=== PATIENT | female | born 1980 | race Two or more races ===

== ENCOUNTER 2017-06-16 11:52 | Inpatient (IN) | payer MEDICAID, OTHER ==
[~2017-06-16] VITALS: Ht 160 cm; Wt 85.3 kg
[2017-06-16 13:41] LABS: Basophils # (auto) 0 uL; Basophils % (auto) 0.1 % (0.0-2.0); Eosinophils # (auto) 0 uL; Hematocrit 47.6 % (36.0-46.0); Hemoglobin 15.2 g/dL (12.2-16.2); Lymphocytes # (auto) 1.8 uL; Lymphocytes % (auto) 8.6 % (10.0-50.0); Mean Corpuscular Hemoglobin 25.9 pg (28.0-32.0); Mean Corpuscular Hgb Conc. 31.9 g/dL (32.0-36.0); Mean Corpuscular Volume 81.4 fL (80.0-100.0); Monocytes # (auto) 1.3 uL; Neutrophils # (auto) 18.1 uL; Neutrophils % (auto) 85.3 % (37.0-80.0); Nucleated Red Blood Cells % 0.1 %; Platelet Count (auto) 267 10^3/uL (140-450); Red Blood Cells 5.85 10^6/uL (4.0-5.20); Red Cell Distribution Width 15.2 % (11.8-14.3); White Blood Cell 21.2 10^3/uL (4.4-10.8)
[2017-06-16 14:02] LABS: Albumin 4.1 g/dL (3.4-5.0); BUN/Creatinine Ratio 12.2; Calcium 9.7 mg/dL (8.5-10.1); Potassium 3.7 mmol/L (3.5-5.1)
[2017-06-16 14:04] LABS: Bilirubin, Total 0.7 mg/dL (0.2-1.0); Total Protein 8.6 g/dL (6.4-8.2)
[2017-06-16] MEDS ORDERED: SODIUM CHLORIDE 0.9% 1,000 ML IVB ONE (14:09)
[2017-06-16] MEDS ORDERED: ONDANSETRON HCL 4 MG/2 ML VIAL IV ONE ×2 (14:15→20:15)
[2017-06-16] MEDS ORDERED: MORPHINE SULFATE 4 MG/ML SYR/VIAL IV ONE ×2 (14:15→16:15)
[2017-06-16] MEDS ORDERED: cefTRIAXone 1GM/10ml IVPUSH 10 ML IV ONE (15:45)
[2017-06-16] MEDS: SODIUM CHLORIDE 0.9% 1,000 ML IV SCH ×2 (16:32→22:51)
[2017-06-16] MEDS ORDERED: MORPHINE SULFATE 4 MG/ML SYR/VIAL IV PRN ×2 (16:45→20:15)
[2017-06-16] MEDS ORDERED: PIPERACILLIN-TAZOB 3.375GM 50 ML IV ONE (16:45)
[2017-06-16] MEDS ORDERED: NITROGLYCERIN 0.4 MG SL TAB SL PRN (16:45)
[2017-06-16] MEDS: FAMOTIDINE (10MG/ML) 2ML VL IV SCH (16:54)
[2017-06-16 17:32] LABS: INR 0.98 (0.9-1.15); Partial Thromboplastin Time 26.7 sec (22.64-33.71); Prothrombin Time 10.7 sec (9.37-12.3)
[2017-06-16] MEDS: metroNIDAZOLE 500MG/100ML 100 ML IV SCH ×2 (18:00→23:39)
[2017-06-16 19:31] LABS: Urine Bacteria FEW /hpf (None Seen); Urine Blood Negative /uL (Negative); Urine Mucus FEW (None Seen); Urine Specific Gravity 1.014 (1.001-1.035); Urine WBC 2 /hpf (0 - 5)
[2017-06-16] MEDS ORDERED: SUCCINYLCHOLINE CHLORIDE 20 MG/ML 10ML VIAL IV ONE (19:41)
[2017-06-16] MEDS ORDERED: LIDOCAINE 1% HCL (LOCAL ANESTH.) INJ 20ML MDV ONE (19:41)
[2017-06-16] MEDS ORDERED: ROCURONIUM 10MG/ML 10ML VIAL IV ONE (19:43)
[2017-06-16] MEDS ORDERED: MIDAZOLAM HCL 1MG/1ML-2 ML VIAL ONE (19:43)
[2017-06-16] MEDS ORDERED: fentaNYL CITRATE 100 MCG/2 ML VL ONE (19:43)
[2017-06-16] MEDS ORDERED: PROPOFOL 10 MG/ML 20 ML IV ONE (19:43)
[2017-06-16] MEDS ORDERED: hydrALAZINE HCL 20 MG/ML VL IV PRN (20:15)
[2017-06-16] MEDS ORDERED: ePHEDrine SULFATE 50 MG/ML AMP IV PRN (20:15)
[2017-06-16] MEDS ORDERED: METOCLOPRAMIDE HCL 5MG/ml INJ 2ml VIAL IV ONE (20:15)
[2017-06-16] MEDS ORDERED: KETOROLAC TROMETH 30 MG/ML 1ML VIAL ONE (20:32)
[2017-06-16] MEDS ORDERED: MEPERIDINE HCL (50 MG/ML) 1 ML VIAL ONE (20:33)
[2017-06-16] MEDS ORDERED: NEOSTIGMINE 1 MG/ML INJ (10mg/10ML VIAL) ONE (20:39)
[2017-06-16] MEDS ORDERED: GLYCOPYRROLATE 0.2 MG/ML 1ML VIAL ONE (20:39)
[2017-06-16 21:45] VITALS: BP 147/95
[2017-06-16] MEDS: MORPHINE SULFATE 4 MG/ML SYR/VIAL IV PRN (21:57)
[2017-06-16 22:00] VITALS: BP 147/95
[2017-06-17] MEDS: PIPERACILLIN-TAZOB 3.375GM 50 ML IV SCH ×4 (01:02→18:25)
[2017-06-17] MEDS: MORPHINE SULFATE 4 MG/ML SYR/VIAL IV PRN ×5 (01:15→20:25)
[2017-06-17] MEDS: FAMOTIDINE (10MG/ML) 2ML VL IV SCH ×2 (04:58→18:25)
[2017-06-17] MEDS: LORazepam 2MG/ML-1ML VIAL IV PRN ×2 (04:58→22:22)
[2017-06-17 05:00] VITALS: BP 119/72
[2017-06-17] MEDS: metroNIDAZOLE 500MG/100ML 100 ML IV SCH ×2 (05:01→11:20)
[2017-06-17] MEDS: SODIUM CHLORIDE 0.9% 1,000 ML IV SCH ×2 (05:01→14:34)
[2017-06-17 07:37] LABS: Basophils # (auto) 0 uL; Eosinophils # (auto) 0 uL; Eosinophils % (auto) 0.1 % (0.0-7.0); Mean Corpuscular Volume 81.5 fL (80.0-100.0); Monocytes # (auto) 1.5 uL; Platelet Count (auto) 198 10^3/uL (140-450)
[2017-06-17 07:39] LABS: Basophils % (auto) 0.1 % (0.0-2.0); Hematocrit 38.1 % (36.0-46.0); Hemoglobin 12.4 g/dL (12.2-16.2); Lymphocytes # (auto) 2.6 uL; Lymphocytes % (auto) 12.6 % (10.0-50.0); Mean Corpuscular Hemoglobin 26.6 pg (28.0-32.0); Mean Corpuscular Hgb Conc. 32.6 g/dL (32.0-36.0); Monocytes % (auto) 6.9 % (0.0-12.0); Neutrophils # (auto) 16.8 uL; Neutrophils % (auto) 80.3 % (37.0-80.0); Red Blood Cells 4.67 10^6/uL (4.0-5.20); Red Cell Distribution Width 15.6 % (11.8-14.3)
[2017-06-17 07:59] LABS: Albumin 2.8 g/dL (3.4-5.0); Calcium 7.7 mg/dL (8.5-10.1); Potassium 3.5 mmol/L (3.5-5.1); Total Protein 6.6 g/dL (6.4-8.2)
[2017-06-17 09:00] VITALS: BP 125/83
[2017-06-17 13:00] VITALS: BP 131/78
[2017-06-17 17:00] VITALS: BP 122/82
[2017-06-17 22:00] VITALS: BP 145/101
[2017-06-18] VITALS (7 sets, daily range): BP systolic 124–145; BP diastolic 87–99
[2017-06-18] MEDS: PIPERACILLIN-TAZOB 3.375GM 50 ML IV SCH ×5 (00:37→23:33)
[2017-06-18] MEDS: MORPHINE SULFATE 4 MG/ML SYR/VIAL IV PRN ×4 (03:30→17:53)
[2017-06-18] MEDS: SODIUM CHLORIDE 0.9% 1,000 ML IV SCH ×4 (04:14→20:30)
[2017-06-18 05:32] LABS: Basophils # (auto) 0 uL; Basophils % (auto) 0.1 % (0.0-2.0); Eosinophils # (auto) 0 uL; Lymphocytes # (auto) 2.3 uL; Monocytes # (auto) 1.3 uL
[2017-06-18 05:34] LABS: Eosinophils % (auto) 0.1 % (0.0-7.0); Hematocrit 37.3 % (36.0-46.0); Hemoglobin 12.1 g/dL (12.2-16.2); Lymphocytes % (auto) 13.5 % (10.0-50.0); Mean Corpuscular Hemoglobin 26.5 pg (28.0-32.0); Mean Corpuscular Hgb Conc. 32.4 g/dL (32.0-36.0); Monocytes % (auto) 7.8 % (0.0-12.0); Neutrophils # (auto) 13.6 uL; Neutrophils % (auto) 78.5 % (37.0-80.0); Platelet Count (auto) 185 10^3/uL (140-450); Red Blood Cells 4.55 10^6/uL (4.0-5.20); Red Cell Distribution Width 15.4 % (11.8-14.3); White Blood Cell 17.3 10^3/uL (4.4-10.8)
[2017-06-18 05:48] LABS: Albumin 2.7 g/dL (3.4-5.0); BUN/Creatinine Ratio 20.8; Calcium 8.4 mg/dL (8.5-10.1); Potassium 3.2 mmol/L (3.5-5.1)
[2017-06-18 05:51] LABS: Bilirubin, Total 0.8 mg/dL (0.2-1.0); Total Protein 6.6 g/dL (6.4-8.2)
[2017-06-18] MEDS: FAMOTIDINE (10MG/ML) 2ML VL IV SCH ×2 (06:20→17:52)
[2017-06-18] MEDS ORDERED: POTASSIUM CHL 20 Meq TABLET PO ONE (11:45)
[2017-06-18] MEDS: LORazepam 2MG/ML-1ML VIAL IV PRN ×2 (11:49→20:16)
[2017-06-19] VITALS (7 sets, daily range): BP systolic 121–138; BP diastolic 78–91
[2017-06-19] MEDS: MORPHINE SULFATE 4 MG/ML SYR/VIAL IV PRN ×2 (01:35→06:20)
[2017-06-19] MEDS: SODIUM CHLORIDE 0.9% 1,000 ML IV SCH ×2 (05:11→11:57)
[2017-06-19] MEDS: PIPERACILLIN-TAZOB 3.375GM 50 ML IV SCH ×3 (05:29→17:55)
[2017-06-19] MEDS: FAMOTIDINE (10MG/ML) 2ML VL IV SCH ×2 (05:29→16:47)
[2017-06-19] MEDS ORDERED: MORPHINE SULFATE 4 MG/ML SYR/VIAL ONE (06:01)
[2017-06-19 07:11] LABS: Basophils % (auto) 0.3 % (0.0-2.0); Eosinophils # (auto) 0.1 uL; Neutrophils # (auto) 10.5 uL; Nucleated Red Blood Cells % 0.1 %
[2017-06-19 07:14] LABS: Basophils # (auto) 0.1 uL; Eosinophils % (auto) 0.6 % (0.0-7.0); Hematocrit 34.4 % (36.0-46.0); Lymphocytes # (auto) 2.7 uL; Lymphocytes % (auto) 18.4 % (10.0-50.0); Mean Corpuscular Hemoglobin 26.2 pg (28.0-32.0); Mean Corpuscular Hgb Conc. 31.9 g/dL (32.0-36.0); Mean Corpuscular Volume 82.1 fL (80.0-100.0); Monocytes # (auto) 1.4 uL; Monocytes % (auto) 9.7 % (0.0-12.0); Platelet Count (auto) 208 10^3/uL (140-450); Red Blood Cells 4.18 10^6/uL (4.0-5.20); Red Cell Distribution Width 15.6 % (11.8-14.3); White Blood Cell 14.7 10^3/uL (4.4-10.8)
[2017-06-19 08:14] LABS: BUN/Creatinine Ratio 21.4; Calcium 8.1 mg/dL (8.5-10.1); Potassium 3.5 mmol/L (3.5-5.1)
[2017-06-19] MEDS: LORazepam 2MG/ML-1ML VIAL IV PRN (10:03)
[2017-06-19] MEDS: KETOROLAC TROMETH 30 MG/ML 1ML VIAL IV PRN ×2 (15:27→21:57)
[2017-06-20] MEDS: PIPERACILLIN-TAZOB 3.375GM 50 ML IV SCH ×4 (00:36→18:10)
[2017-06-20] MEDS: LORazepam 2MG/ML-1ML VIAL IV PRN ×2 (00:36→10:06)
[2017-06-20] MEDS: SODIUM CHLORIDE 0.9% 1,000 ML IV SCH ×2 (01:05→15:18)
[2017-06-20] MEDS: FAMOTIDINE (10MG/ML) 2ML VL IV SCH ×2 (05:22→17:10)
[2017-06-20 05:23] VITALS: BP 123/80
[2017-06-20 06:05] LABS: Basophils # (auto) 0 uL; Eosinophils # (auto) 0.2 uL; Hemoglobin 10.9 g/dL (12.2-16.2); Lymphocytes # (auto) 2.4 uL; Mean Corpuscular Hemoglobin 26.6 pg (28.0-32.0); Mean Corpuscular Hgb Conc. 32.5 g/dL (32.0-36.0); Neutrophils # (auto) 6.5 uL
[2017-06-20 06:07] LABS: Basophils % (auto) 0.5 % (0.0-2.0); Eosinophils % (auto) 1.8 % (0.0-7.0); Hematocrit 33.4 % (36.0-46.0); Lymphocytes % (auto) 23.2 % (10.0-50.0); Mean Corpuscular Volume 81.7 fL (80.0-100.0); Monocytes # (auto) 1.3 uL; Monocytes % (auto) 12.1 % (0.0-12.0); Neutrophils % (auto) 62.4 % (37.0-80.0); Platelet Count (auto) 236 10^3/uL (140-450); Red Blood Cells 4.09 10^6/uL (4.0-5.20); Red Cell Distribution Width 15.4 % (11.8-14.3); White Blood Cell 10.4 10^3/uL (4.4-10.8)
[2017-06-20] MEDS: KETOROLAC TROMETH 30 MG/ML 1ML VIAL IV PRN ×3 (06:57→20:28)
[2017-06-20 08:00] VITALS: BP 122/81
[2017-06-20 12:00] VITALS: BP 130/85
[2017-06-20 16:54] VITALS: BP 128/91
[2017-06-20] MEDS: MORPHINE SULFATE 4 MG/ML SYR/VIAL IV PRN (17:15)
[2017-06-20 21:44] VITALS: BP 138/88
[2017-06-21] VITALS (7 sets, daily range): BP systolic 108–150; BP diastolic 63–101
[2017-06-21] MEDS: PIPERACILLIN-TAZOB 3.375GM 50 ML IV SCH ×2 (00:28→05:55)
[2017-06-21] MEDS: KETOROLAC TROMETH 30 MG/ML 1ML VIAL IV PRN (02:15)
[2017-06-21] MEDS: SODIUM CHLORIDE 0.9% 1,000 ML IV SCH (04:12)
[2017-06-21] MEDS: FAMOTIDINE (10MG/ML) 2ML VL IV SCH (04:21)
[2017-06-21 06:14] LABS: Hemoglobin 10.3 g/dL (12.2-16.2); Lymphocytes # (auto) 2.2 uL
[2017-06-21 06:16] LABS: Basophils # (auto) 0 uL; Basophils % (auto) 0.3 % (0.0-2.0); Eosinophils # (auto) 0.2 uL; Eosinophils % (auto) 2.6 % (0.0-7.0); Hematocrit 31.9 % (36.0-46.0); Lymphocytes % (auto) 23.8 % (10.0-50.0); Mean Corpuscular Hemoglobin 26.4 pg (28.0-32.0); Mean Corpuscular Hgb Conc. 32.2 g/dL (32.0-36.0); Monocytes % (auto) 10.4 % (0.0-12.0); Neutrophils # (auto) 5.8 uL; Neutrophils % (auto) 62.9 % (37.0-80.0); Nucleated Red Blood Cells % 0.2 %; Platelet Count (auto) 249 10^3/uL (140-450); Red Blood Cells 3.89 10^6/uL (4.0-5.20); Red Cell Distribution Width 15.4 % (11.8-14.3); White Blood Cell 9.2 10^3/uL (4.4-10.8)
[2017-06-21 06:29] LABS: Potassium 3.7 mmol/L (3.5-5.1)
[2017-06-21] MEDS: LEVOFLOXACIN 500 MG TAB PO SCH (11:24)
[2017-06-21] MEDS: ACETAMINOPHEN 500 MG TAB PO PRN ×2 (11:25→21:16)
[2017-06-21] MEDS: MORPHINE SULFATE 4 MG/ML SYR/VIAL IV PRN ×2 (12:49→17:26)
[2017-06-21] MEDS: LORazepam 2MG/ML-1ML VIAL IV PRN (14:25)
[2017-06-21] MEDS: metroNIDAZOLE 500 MG TAB PO SCH ×2 (14:41→22:05)
[2017-06-21] MEDS: FAMOTIDINE 20 MG TAB PO SCH (22:06)
[2017-06-22] MEDS: MORPHINE SULFATE 4 MG/ML SYR/VIAL IV PRN ×3 (00:20→15:44)
[2017-06-22 05:00] VITALS: BP 136/81
[2017-06-22] MEDS: ACETAMINOPHEN 500 MG TAB PO PRN ×2 (05:35→13:59)
[2017-06-22] MEDS: metroNIDAZOLE 500 MG TAB PO SCH (05:35)
[2017-06-22 07:04] LABS: Basophils % (auto) 0.4 % (0.0-2.0); Eosinophils # (auto) 0.2 uL; Monocytes # (auto) 1.4 uL; Neutrophils # (auto) 8.2 uL
[2017-06-22 07:07] LABS: Basophils # (auto) 0 uL; Eosinophils % (auto) 1.8 % (0.0-7.0); Hemoglobin 11.6 g/dL (12.2-16.2); Lymphocytes # (auto) 2.7 uL; Lymphocytes % (auto) 21.5 % (10.0-50.0); Mean Corpuscular Hemoglobin 26.1 pg (28.0-32.0); Mean Corpuscular Hgb Conc. 32.2 g/dL (32.0-36.0); Monocytes % (auto) 11.2 % (0.0-12.0); Neutrophils % (auto) 65.1 % (37.0-80.0); Nucleated Red Blood Cells % 0.1 %; Platelet Count (auto) 306 10^3/uL (140-450); Red Blood Cells 4.45 10^6/uL (4.0-5.20); Red Cell Distribution Width 15.1 % (11.8-14.3); White Blood Cell 12.6 10^3/uL (4.4-10.8)
[2017-06-22 08:00] VITALS: BP 147/98
[2017-06-22] MEDS: FAMOTIDINE 20 MG TAB PO SCH ×2 (09:07→22:38)
[2017-06-22] MEDS: LEVOFLOXACIN 500 MG TAB PO SCH (09:07)
[2017-06-22] MEDS: PROMETHAZINE HCL 25 MG/ML 1ML IV PRN ×2 (09:07→15:43)
[2017-06-22] MEDS ORDERED: IOHEXOL 300 MG/ML 100ML BOTTLE IJ ONE (11:27)
[2017-06-22 12:00] VITALS: BP 136/85
[2017-06-22] MEDS: metroNIDAZOLE 500MG/100ML 100 ML IV SCH ×2 (13:33→22:37)
[2017-06-22 17:00] VITALS: BP 122/80
[2017-06-22 20:00] VITALS: BP 147/94
[2017-06-22 22:00] VITALS: BP 147/94
[2017-06-22] MEDS: DOCUSATE SOD 100 MG CAP PO SCH (22:00)
[2017-06-22] MEDS: LORazepam 2MG/ML-1ML VIAL IV PRN (23:10)
[2017-06-23] MEDS: MORPHINE SULFATE 4 MG/ML SYR/VIAL IV PRN ×3 (01:27→20:14)
[2017-06-23] MEDS: metroNIDAZOLE 500MG/100ML 100 ML IV SCH ×3 (06:14→22:06)
[2017-06-23 07:07] LABS: Basophils # (auto) 0 uL; Hemoglobin 11.9 g/dL (12.2-16.2); Mean Corpuscular Hgb Conc. 31.8 g/dL (32.0-36.0); Monocytes # (auto) 1.3 uL; Monocytes % (auto) 9.9 % (0.0-12.0); Platelet Count (auto) 346 10^3/uL (140-450)
[2017-06-23 07:14] LABS: Basophils % (auto) 0.2 % (0.0-2.0); Eosinophils # (auto) 0.1 uL; Eosinophils % (auto) 1.1 % (0.0-7.0); Hematocrit 37.5 % (36.0-46.0); Lymphocytes # (auto) 3.2 uL; Lymphocytes % (auto) 25.2 % (10.0-50.0); Mean Corpuscular Hemoglobin 25.9 pg (28.0-32.0); Mean Corpuscular Volume 81.4 fL (80.0-100.0); Neutrophils # (auto) 8.2 uL; Neutrophils % (auto) 63.6 % (37.0-80.0); Red Blood Cells 4.61 10^6/uL (4.0-5.20); Red Cell Distribution Width 15.6 % (11.8-14.3); White Blood Cell 12.8 10^3/uL (4.4-10.8)
[2017-06-23] MEDS: ACETAMINOPHEN 500 MG TAB PO PRN ×2 (07:18→22:05)
[2017-06-23 07:24] LABS: Albumin 2.8 g/dL (3.4-5.0); Calcium 8.6 mg/dL (8.5-10.1)
[2017-06-23 07:35] LABS: Bilirubin, Total 0.3 mg/dL (0.2-1.0); Total Protein 7.1 g/dL (6.4-8.2)
[2017-06-23 08:09] VITALS: BP 129/83
[2017-06-23] MEDS: LEVOFLOXACIN 500MG 100 ML IV SCH (09:47)
[2017-06-23] MEDS: FAMOTIDINE 20 MG TAB PO SCH ×2 (09:48→22:05)
[2017-06-23] MEDS: DOCUSATE SOD 100 MG CAP PO SCH ×2 (09:48→22:06)
[2017-06-23] MEDS: PROMETHAZINE HCL 25 MG/ML 1ML IV PRN (11:35)
[2017-06-23 12:15] VITALS: BP 134/94
[2017-06-23] MEDS: LORazepam 2MG/ML-1ML VIAL IV PRN (16:33)
[2017-06-23 16:57] VITALS: BP 142/93
[2017-06-23 20:00] VITALS: BP 141/94
[2017-06-23 22:00] VITALS: BP 141/94
[2017-06-24 05:00] VITALS: BP 120/83
[2017-06-24] MEDS: metroNIDAZOLE 500MG/100ML 100 ML IV SCH ×3 (06:55→21:21)
[2017-06-24 08:00] VITALS: BP 121/82
[2017-06-24] MEDS: ACETAMINOPHEN 500 MG TAB PO PRN (09:20)
[2017-06-24] MEDS: FAMOTIDINE 20 MG TAB PO SCH ×2 (09:21→21:22)
[2017-06-24] MEDS: DOCUSATE SOD 100 MG CAP PO SCH ×2 (09:21→21:22)
[2017-06-24] MEDS: LEVOFLOXACIN 500MG 100 ML IV SCH (09:21)
[2017-06-24 12:00] VITALS: BP 138/89
[2017-06-24] MEDS ORDERED: LORazepam 2MG/ML-1ML VIAL IV PRN (12:30)
[2017-06-24] MEDS ORDERED: MORPHINE SULFATE 4 MG/ML SYR/VIAL IV PRN ×3 (12:30)
[2017-06-24] MEDS ORDERED: HYDROcodone-ACET 5/325MG TAB PO PRN (12:30)
[2017-06-24] MEDS: PROMETHAZINE HCL 25 MG/ML 1ML IV PRN ×2 (12:36→17:24)
[2017-06-24] MEDS: MORPHINE SULFATE 4 MG/ML SYR/VIAL IV PRN ×2 (12:43→20:37)
[2017-06-24 16:40] VITALS: BP 143/97
[2017-06-24 20:00] VITALS: BP 137/88
[2017-06-24 22:00] VITALS: BP 137/88
[2017-06-25] MEDS: MORPHINE SULFATE 4 MG/ML SYR/VIAL IV PRN ×2 (00:33→10:09)
[2017-06-25 05:00] VITALS: BP 129/81
[2017-06-25 05:39] LABS: Mean Corpuscular Volume 81.4 fL (80.0-100.0); White Blood Cell 11.4 10^3/uL (4.4-10.8)
[2017-06-25 05:42] LABS: Hematocrit 39.3 % (36.0-46.0); Hemoglobin 12.9 g/dL (12.2-16.2); Mean Corpuscular Hemoglobin 26.7 pg (28.0-32.0); Mean Corpuscular Hgb Conc. 32.7 g/dL (32.0-36.0); Platelet Count (auto) 403 10^3/uL (140-450); Red Blood Cells 4.82 10^6/uL (4.0-5.20); Red Cell Distribution Width 15.3 % (11.8-14.3)
[2017-06-25 05:55] LABS: Basophils % (manual) 0 (0.0-2.0); Blast Cells 0; Metamyelocytes % 0; Myelocytes % 0; Promyelocytes % 0; Reactive Lymphocytes 0
[2017-06-25 05:57] LABS: Potassium 4.3 mmol/L (3.5-5.1)
[2017-06-25] MEDS: metroNIDAZOLE 500MG/100ML 100 ML IV SCH (06:02)
[2017-06-25 06:08] LABS: Albumin 3.2 g/dL (3.4-5.0); BUN/Creatinine Ratio 19.7; Calcium 9.2 mg/dL (8.5-10.1)
[2017-06-25 06:10] LABS: Bilirubin, Total 0.4 mg/dL (0.2-1.0); Total Protein 7.4 g/dL (6.4-8.2)
[2017-06-25 06:33] LABS: Band Neutrophils % (manual) 2; Eosinophils % (manual) 3 (0-7); Lymphocytes % (manual) 26 (10.0-50.0); Monocytes % (manual) 9 (0-12)
[2017-06-25 09:00] VITALS: BP 126/78
[2017-06-25] MEDS: DOCUSATE SOD 100 MG CAP PO SCH ×2 (10:08→21:28)
[2017-06-25] MEDS: FAMOTIDINE 20 MG TAB PO SCH ×2 (10:08→21:28)
[2017-06-25] MEDS: LEVOFLOXACIN 500MG 100 ML IV SCH (10:09)
[2017-06-25 13:00] VITALS: BP 126/91
[2017-06-25] MEDS: PROMETHAZINE HCL 25 MG/ML 1ML IV PRN (13:22)
[2017-06-25] MEDS: metroNIDAZOLE 500 MG TAB PO SCH ×2 (13:23→21:28)
[2017-06-25 16:49] VITALS: BP 115/75
[2017-06-25 20:00] VITALS: BP 131/91
[2017-06-25 22:00] VITALS: BP 131/91
[2017-06-26 05:00] VITALS: BP 129/82
[2017-06-26] MEDS: metroNIDAZOLE 500 MG TAB PO SCH ×3 (06:00→21:17)
[2017-06-26 06:21] LABS: Hemoglobin 13.1 g/dL (12.2-16.2); Lymphocytes # (auto) 3.1 uL; Red Cell Distribution Width 15.5 % (11.8-14.3)
[2017-06-26 06:23] LABS: Basophils # (auto) 0 uL; Basophils % (auto) 0.3 % (0.0-2.0); Eosinophils # (auto) 0.2 uL; Eosinophils % (auto) 1.3 % (0.0-7.0); Hematocrit 40.4 % (36.0-46.0); Lymphocytes % (auto) 26.3 % (10.0-50.0); Mean Corpuscular Hemoglobin 26.4 pg (28.0-32.0); Mean Corpuscular Hgb Conc. 32.4 g/dL (32.0-36.0); Mean Corpuscular Volume 81.3 fL (80.0-100.0); Monocytes % (auto) 8.6 % (0.0-12.0); Neutrophils # (auto) 7.5 uL; Neutrophils % (auto) 63.5 % (37.0-80.0); Nucleated Red Blood Cells % 0.1 %; Platelet Count (auto) 420 10^3/uL (140-450); Red Blood Cells 4.97 10^6/uL (4.0-5.20); White Blood Cell 11.8 10^3/uL (4.4-10.8)
[2017-06-26 08:56] VITALS: BP 142/103
[2017-06-26] MEDS: LEVOFLOXACIN 500MG 100 ML IV SCH (09:46)
[2017-06-26] MEDS: FAMOTIDINE 20 MG TAB PO SCH ×2 (09:46→21:18)
[2017-06-26] MEDS: DOCUSATE SOD 100 MG CAP PO SCH ×2 (09:46→21:17)
[2017-06-26] MEDS ORDERED: MORPHINE SULFATE 4 MG/ML SYR/VIAL IV PRN (12:15)
[2017-06-26 12:31] VITALS: BP 134/85
[2017-06-26 16:28] VITALS: BP 139/98
[2017-06-26 20:00] VITALS: BP 136/97
[2017-06-26 22:00] VITALS: BP 136/97
[2017-06-27 05:00] VITALS: BP 126/78
[2017-06-27] MEDS: metroNIDAZOLE 500 MG TAB PO SCH (05:35)
[2017-06-27 08:58] VITALS: BP 133/93
[2017-06-27] MEDS ORDERED: IOHEXOL 300 MG/ML 100ML BOTTLE IJ ONE (09:50)
[2017-06-27] MEDS: DOCUSATE SOD 100 MG CAP PO SCH (10:20)
[2017-06-27] MEDS: LEVOFLOXACIN 500MG 100 ML IV SCH (10:20)
[2017-06-27] MEDS: FAMOTIDINE 20 MG TAB PO SCH (10:20)
[2017-06-27 11:31] VITALS: BP 146/96
== END 2017-06-27 14:29 | disposition home or self-care (01) | DRG 710 ==
LOC: ER 11:52 → EDBD 11:52 → TELE 11:53 → TELE-WESTW 21:45 → WEST WING 06-17 18:50
PROVIDERS: ADMIT Internal Medicine; ATTEND Internal Medicine
PROC: 0DTJ4ZZ Resection of Appendix, Percutaneous Endoscopic Approach (ICD-10-PCS; principal; 2017-06-16 19:49)
DX: A41.9 Sepsis, unspecified organism (principal); K35.3 Acute appendicitis with localized peritonitis; E66.9 Obesity, unspecified; N83.209 Unspecified ovarian cyst, unspecified side; B96.20 Unspecified Escherichia coli [E. coli] as the cause of diseases classified elsewhere; Z82.49 Family history of ischemic heart disease and other diseases of the circulatory system; Z68.33 Body mass index [BMI] 33.0-33.9, adult
CPT/HCPCS: 36415; 74176; 74177; 80048; 80053; 81001; 82150; 82270; 83690; 84702; 85007; 85025; 85027; 85610; 85730; 86850; 86900; 86901; 87040; 87070; 87075; 87077; 87186; 87205; 93005; 93970; 93971; 94761; 96365; 96375; 96376; J0330; J1885; J1956; J2001; J2250; J2405; J2543; J2704; J3490

== ENCOUNTER 2017-07-12 13:20 | Emergency (ER) | payer MEDICAID ==
[~2017-07-12] VITALS: Ht 160 cm; Wt 83.9 kg
[2017-07-12 13:46] VITALS: BP 144/93
[2017-07-12] MEDS ORDERED: KETOROLAC TROMETH 60MG/2ML VIAL IM ONE (14:00)
== END 2017-07-12 14:32 | disposition home or self-care (01) ==
LOC: ER 13:20
DX: K62.89 Other specified diseases of anus and rectum (principal); B99.9 Unspecified infectious disease; F12.10 Cannabis abuse, uncomplicated
CPT/HCPCS: 96372; 99283; J1885

== ENCOUNTER 2018-01-10 10:48 | Emergency (ER) | payer MEDICAID, OTHER ==
[~2018-01-10] VITALS: Ht 160 cm; Wt 90.7 kg
[2018-01-10 11:53] LABS: Basophils # (auto) 0.1 uL; Basophils % (auto) 0.8 % (0.0-2.0); Eosinophils # (auto) 0.1 uL; Eosinophils % (auto) 1.3 % (0.0-7.0); Hematocrit 42.6 % (36.0-46.0); Lymphocytes # (auto) 3.2 uL; Lymphocytes % (auto) 37.7 % (10.0-50.0); Mean Corpuscular Hemoglobin 27.1 pg (28.0-32.0); Mean Corpuscular Hgb Conc. 32.8 g/dL (32.0-36.0); Mean Corpuscular Volume 82.8 fL (80.0-100.0); Monocytes # (auto) 0.8 uL; Monocytes % (auto) 9.7 % (0.0-12.0); Neutrophils # (auto) 4.2 uL; Neutrophils % (auto) 50.5 % (37.0-80.0); Nucleated Red Blood Cells % 0.1 %; Platelet Count (auto) 211 10^3/uL (140-450); Red Blood Cells 5.15 10^6/uL (4.0-5.20); White Blood Cell 8.4 10^3/uL (4.4-10.8)
[2018-01-10 11:55] LABS: Urine Bacteria FEW /hpf (None Seen); Urine Blood Negative /uL (Negative); Urine Specific Gravity 1.011 (1.001-1.035); Urine WBC <1 /hpf (0 - 5)
[2018-01-10 12:16] LABS: Albumin 3.9 g/dL (3.4-5.0); BUN/Creatinine Ratio 16.7; Bilirubin, Total 0.5 mg/dL (0.2-1.0); Calcium 8.8 mg/dL (8.5-10.1); Potassium 3.9 mmol/L (3.5-5.1); Total Protein 7.9 g/dL (6.4-8.2)
[2018-01-10 12:22] LABS: INR 0.91 (0.9-1.15); Partial Thromboplastin Time 30.4 sec (23.78-33.04); Prothrombin Time 9.8 sec (9.27-12.13)
[2018-01-10] MEDS ORDERED: IOHEXOL 300 MG/ML 100ML BOTTLE IJ ONE (14:50)
[2018-01-10 15:57] VITALS: BP 140/98
== END 2018-01-10 15:59 | disposition home or self-care (01) ==
LOC: ER 10:48
DX: N83.201 Unspecified ovarian cyst, right side (principal); Z32.02 Encounter for pregnancy test, result negative
CPT/HCPCS: 36415; 74177; 80053; 81001; 81025; 85025; 85610; 85730; 99285; Q9967